=== PATIENT | male | born 1965 | race Caucasian/White ===

== ENCOUNTER 2020-06-27 20:45 | Emergency (ER) | payer BC ==
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
--- NOTE | 2020-06-28 11:02 | CR ---
Right wrist: 3 views of the right wrist were obtained. Comparison: No prior wrist study. Joint spaces are preserved. No acute fracture, dislocation or other bony abnormality is appreciated. Impression: 1. Nothing acute is seen on 3 view right wrist exam. Diagnostic code #1 This report was dictated in MDT
--- NOTE | 2020-06-28 11:02 | CR ---
Chest: 2 views of the chest were obtained. Comparison: No prior chest imaging is available. Heart size and mediastinum are normal. Lungs are clear with no acute parenchymal change. Bony structures are unremarkable. Impression: 1. Nothing acute is seen on 2 view chest x-ray. Diagnostic code #1 This report was dictated in MDT
== END 2020-06-27 21:59 | disposition home or self-care (01) ==
LOC: JD.ED 20:45
DX: S20.211A Contusion of right front wall of thorax, initial encounter (principal); S69.91XA Unspecified injury of right wrist, hand and finger(s), initial encounter; V28.0XXA Motorcycle driver injured in noncollision transport accident in nontraffic accident, initial encounter
CPT/HCPCS: 71046; 71046-26; 73110-26-RT; 73110-RT; 99282; 99284-25